=== PATIENT | female | born 1965 | race Caucasian/White ===

== ENCOUNTER 2020-04-23 20:39 | Inpatient (IN) | payer MEDICARE ==
[~2020-04-23] VITALS: Ht 162.6 cm; Wt 54.5 kg
[2020-04-23 23:06] VITALS: BP 103/75
[2020-04-23 23:07] VITALS: BP 103/75
[2020-04-23 23:15] VITALS: BP 113/77
[2020-04-23 23:30] VITALS: BP 97/67
[2020-04-23 23:45] VITALS: BP 97/70
[2020-04-24] VITALS (28 sets, daily range): BP systolic 91–145; BP diastolic 59–85
[2020-04-24] MEDS ORDERED: TYLENOL # 31 EA PO (00:15)
[2020-04-24] MEDS ORDERED: PROPOFOL IV EMULSION 50 ML IV ONE ×3 (00:37→06:47)
[2020-04-24] MEDS: PROPOFOL IV EMULSION 10MG/ML 100 ML IV PRN ×6 (00:41→19:21)
[2020-04-24] MEDS: FENTANYL CITRATE INJ 2,000 MCG in SODIUM CHLORIDE 0.9% 250ML 210 ML IV PRN ×3 (00:41→20:39)
[2020-04-24] MEDS ORDERED: FENTANYL 2000MCG/NS 250 250 ML ONE ×3 (00:42→20:46)
[2020-04-24] MEDS: PANTOPRAZOLE INJ 40 MG in SODIUM CHLORIDE 0.9% 50ML 50 ML IV SCH ×4 (01:33→11:33)
[2020-04-24 04:47] LABS: BASOPHILS # (AUTO) 0.1 (0.0-0.1); BASOPHILS % 0.4 % (0.0-1.0); HEMATOCRIT 30.2 % (34.2-44.1); HEMOGLOBIN 9.4 g/dL (12.0-16.0); LYMPHOCYTES # (AUTO) 2.3 (1.0-3.2); LYMPHOCYTES % 7.9 % (18.0-39.1); MEAN CORPUSCULAR HEMOGLOBIN 29.1 pg (28-32); MEAN CORPUSCULAR HGB CONC 31.1 g/dL (31-35); MEAN CORPUSCULAR VOLUME 93.5 fL (81-99); MONOCYTES # (AUTO) 1.8 (0.2-0.8); MONOCYTES % 6.3 % (4.4-11.3); NEUTROPHILS # (AUTO) 23.9 (2.1-6.9); NEUTROPHILS % 81.7 % (38.7-80.0); PLATELET COUNT 479 x10e3/uL (140-360); RED BLOOD COUNT 3.23 x10e6/uL (3.6-5.1); RED CELL DISTRIBUTION WIDTH 12.8 % (11.7-14.4)
[2020-04-24 05:15] LABS: ALANINE AMINOTRANSFERASE 54 IU/L (0-55); ALBUMIN 2.6 g/dL (3.5-5.0); ALBUMIN/GLOBULIN RATIO 0.7 (0.8-2.0); ALKALINE PHOSPHATASE 139 IU/L (40-150); ANION GAP 13.9 mmol/L (8-16); BLOOD UREA NITROGEN 23 mg/dL (7-26); BUN/CREATININE RATIO 32 (6-25); CALCIUM 8.9 mg/dL (8.4-10.2); CARBON DIOXIDE 26 mmol/L (22-29); CHLORIDE 104 mmol/L (98-107); CREATININE, SERUM 0.72 mg/dL (0.57-1.11); EST GLOMERULAR FILTRATION RATE > 60 ML/MIN (60-); GLUCOSE 116 mg/dL (74-118); POTASSIUM 4.9 mmol/L (3.5-5.1); SODIUM 139 mmol/L (136-145)
[2020-04-24 08:16] LABS: ABG HCO3 30 mmol/L (22-26); ABG PCO2 40 mmHg (35-45); ABG PH 7.48 (7.35-7.45); ABG PO2 151 mmHg (80-105); ABG TCO2 31
[2020-04-24] MEDS ORDERED: CEFEPIME 1GM/NS 0.9% 50 ML 50 ML IV SCH (08:45)
[2020-04-24 09:01] LABS: INR 1.14; PROTHROMBIN TIME 15.4 seconds (11.9-14.5)
[2020-04-24 09:02] LABS: PARTIAL THROMBOPLASTIN TIME 33.1 seconds (23.8-35.5)
[2020-04-24 09:18] LABS: % IRON SATURATION 15 % (15-50); IRON 39 ug/dL (50-170); TOTAL IRON BINDING CAPACITY 262 ug/dL (261-478); TRANSFERRIN 187 mg/dL (180-382)
[2020-04-24] MEDS: HEPARIN SOD (PORCINE) 5,000 UNIT/ML VIAL SC SCH ×2 (09:30→21:57)
[2020-04-24] MEDS ORDERED: PROPOFOL IV EMULSION 150 ML IV ONE (09:35)
[2020-04-24 09:39] LABS: BAND NEUTROPHILS % (MANUAL) 2 %; LYMPHOCYTES % (MANUAL) 11 % (19-48); MONOCYTES % (MANUAL) 4 % (3.4-9.0); NEUTROPHILS % (MANUAL) 81 % (40-74); PLATELET ESTIMATE SLIGHTLY INCREASED; PLATELET MORPHOLOGY COMMENT NORMAL; RBC MORPHOLOGY COMMENT NORMAL
[2020-04-24] MEDS: AZTREONAM 1 GM/NS 50 ML 50 ML IV SCH ×2 (09:43→21:57)
[2020-04-24] MEDS: ALBUTEROL/IPRATROPIUM 3 ML NEB NEB SCH ×3 (11:00→20:15)
[2020-04-24] MEDS: CLINDAMYCIN PHOS 900MG/ 50ML 50 ML IV SCH ×3 (11:38→23:12)
[2020-04-24] MEDS: PANTOPRAZOLE 40 MG 10ML VIAL IV SCH (17:00)
[2020-04-25] VITALS (25 sets, daily range): BP systolic 99–115; BP diastolic 52–65
[2020-04-25] MEDS: ALBUTEROL/IPRATROPIUM 3 ML NEB NEB SCH ×7 (00:15→22:30)
[2020-04-25] MEDS ORDERED: PROPOFOL IV EMULSION 50 ML IV ONE (03:17)
[2020-04-25] MEDS ORDERED: FENTANYL 2000MCG/NS 250 250 ML ONE (03:18)
[2020-04-25] MEDS: PROPOFOL IV EMULSION 10MG/ML 100 ML IV PRN (03:23)
[2020-04-25] MEDS: FENTANYL CITRATE INJ 2,000 MCG in SODIUM CHLORIDE 0.9% 250ML 210 ML IV PRN (03:24)
[2020-04-25] MEDS: CLINDAMYCIN PHOS 900MG/ 50ML 50 ML IV SCH ×3 (05:43→16:04)
[2020-04-25 06:11] LABS: BASOPHILS # (AUTO) 0.1 (0.0-0.1); BASOPHILS % 0.4 % (0.0-1.0); EOSINOPHILS # (AUTO) 0.1 (0.0-0.4); EOSINOPHILS % 0.3 % (0.0-6.0); HEMATOCRIT 27.3 % (34.2-44.1); HEMOGLOBIN 8.3 g/dL (12.0-16.0); LYMPHOCYTES # (AUTO) 2.3 (1.0-3.2); LYMPHOCYTES % 12.6 % (18.0-39.1); MEAN CORPUSCULAR HGB CONC 30.4 g/dL (31-35); MEAN CORPUSCULAR VOLUME 98.6 fL (81-99); MONOCYTES # (AUTO) 1.6 (0.2-0.8); MONOCYTES % 8.8 % (4.4-11.3); NEUTROPHILS # (AUTO) 13.4 (2.1-6.9); NEUTROPHILS % 74.1 % (38.7-80.0); PLATELET COUNT 319 x10e3/uL (140-360); RED BLOOD COUNT 2.77 x10e6/uL (3.6-5.1); RED CELL DISTRIBUTION WIDTH 13.2 % (11.7-14.4)
[2020-04-25 06:33] LABS: ALANINE AMINOTRANSFERASE 43 IU/L (0-55); ALBUMIN 2.3 g/dL (3.5-5.0); ALBUMIN/GLOBULIN RATIO 0.6 (0.8-2.0); ALKALINE PHOSPHATASE 120 IU/L (40-150); ANION GAP 12.7 mmol/L (8-16); BLOOD UREA NITROGEN 13 mg/dL (7-26); BUN/CREATININE RATIO 22 (6-25); CARBON DIOXIDE 28 mmol/L (22-29); CHLORIDE 105 mmol/L (98-107); CREATININE, SERUM 0.59 mg/dL (0.57-1.11); EST GLOMERULAR FILTRATION RATE > 60 ML/MIN (60-); GLUCOSE 120 mg/dL (74-118); SODIUM 142 mmol/L (136-145)
[2020-04-25 06:48] LABS: POTASSIUM 3.7 mmol/L (3.5-5.1)
[2020-04-25] MEDS ORDERED: PROPOFOL IV EMULSION 50 ML IV PRN (09:30)
[2020-04-25] MEDS: AZTREONAM 1 GM/NS 50 ML 50 ML IV SCH ×2 (09:33→21:35)
[2020-04-25] MEDS: PANTOPRAZOLE 40 MG 10ML VIAL IV SCH ×2 (09:33→16:04)
[2020-04-25] MEDS: HEPARIN SOD (PORCINE) 5,000 UNIT/ML VIAL SC SCH ×2 (09:33→21:00)
[2020-04-25] MEDS: DEXMEDETOMIDINE 200MCG/NS 50ML 50 ML IV SCH (11:18)
[2020-04-25] MEDS: FENTANYL 2000MCG/NS 250 250 ML IV PRN (11:48)
[2020-04-26] VITALS (28 sets, daily range): BP systolic 94–165; BP diastolic 50–99
[2020-04-26] MEDS: PROPOFOL IV EMULSION 10MG/ML 100 ML IV PRN ×4 (01:15→22:00)
[2020-04-26] MEDS: ALBUTEROL/IPRATROPIUM 3 ML NEB NEB SCH ×6 (03:10→22:30)
[2020-04-26 05:03] LABS: BASOPHILS # (AUTO) 0.1 (0.0-0.1); BASOPHILS % 0.4 % (0.0-1.0); EOSINOPHILS # (AUTO) 0.1 (0.0-0.4); EOSINOPHILS % 0.3 % (0.0-6.0); HEMATOCRIT 26.7 % (34.2-44.1); HEMOGLOBIN 8.1 g/dL (12.0-16.0); LYMPHOCYTES % 11.8 % (18.0-39.1); MEAN CORPUSCULAR HEMOGLOBIN 29.5 pg (28-32); MEAN CORPUSCULAR HGB CONC 30.3 g/dL (31-35); MEAN CORPUSCULAR VOLUME 97.1 fL (81-99); MONOCYTES # (AUTO) 1.2 (0.2-0.8); MONOCYTES % 6.8 % (4.4-11.3); NEUTROPHILS # (AUTO) 13.3 (2.1-6.9); NEUTROPHILS % 77.6 % (38.7-80.0); PLATELET COUNT 247 x10e3/uL (140-360); RED BLOOD COUNT 2.75 x10e6/uL (3.6-5.1); RED CELL DISTRIBUTION WIDTH 13.1 % (11.7-14.4)
[2020-04-26 05:24] LABS: ANION GAP 13.2 mmol/L (8-16); BLOOD UREA NITROGEN 12 mg/dL (7-26); BUN/CREATININE RATIO 23 (6-25); CALCIUM 8.3 mg/dL (8.4-10.2); CARBON DIOXIDE 28 mmol/L (22-29); CHLORIDE 103 mmol/L (98-107); CREATININE, SERUM 0.53 mg/dL (0.57-1.11); EST GLOMERULAR FILTRATION RATE > 60 ML/MIN (60-); GLUCOSE 106 mg/dL (74-118); POTASSIUM 4.2 mmol/L (3.5-5.1); SODIUM 140 mmol/L (136-145)
[2020-04-26] MEDS: CLINDAMYCIN PHOS 900MG/ 50ML 50 ML IV SCH ×4 (06:00→17:52)
[2020-04-26 06:24] LABS: INR 0.97; PARTIAL THROMBOPLASTIN TIME 32.9 seconds (23.8-35.5); PROTHROMBIN TIME 13.5 seconds (11.9-14.5)
[2020-04-26] MEDS ORDERED: AMIODARONE HCL 150 MG/100 ML BAG IV ONE (06:45)
[2020-04-26] MEDS ORDERED: AMIODARONE HCL 900 MG in DEXTROSE 5% 500ML 500 ML IV ONE (06:45)
[2020-04-26] MEDS ORDERED: HEPARIN 25,000 UNIT 600 UNIT in DEXTROSE 5% 250ML 250 ML IV SCH (07:00)
[2020-04-26] MEDS ORDERED: HEPARIN 25,000 UNIT DRIP IV ONE (07:54)
[2020-04-26] MEDS: DEXMEDETOMIDINE 200MCG/NS 50ML 50 ML IV SCH ×2 (08:53→11:00)
[2020-04-26] MEDS: HEPARIN SOD (PORCINE) 5,000 UNIT/ML VIAL SC SCH ×2 (08:53→20:47)
[2020-04-26] MEDS: PANTOPRAZOLE 40 MG 10ML VIAL IV SCH ×2 (09:00→16:05)
[2020-04-26] MEDS: AZTREONAM 1 GM/NS 50 ML 50 ML IV SCH ×2 (09:14→21:24)
[2020-04-26] MEDS: FENTANYL 2000MCG/NS 250 250 ML IV PRN (11:28)
[2020-04-26] MEDS ORDERED: HYDROCODONE/APAP 5MG-325MG TAB PO PRN (14:45)
[2020-04-26] MEDS ORDERED: CYCLOBENZAPRIN7.5 MG PO (16:22)
[2020-04-26] MEDS ORDERED: MULTI-VITAMIN1 EACH PO (16:22)
[2020-04-26] MEDS ORDERED: ALBUTEROL1.25 MG/3 NEB (16:22)
[2020-04-26] MEDS ORDERED: GABAPENTIN100 MG PO (16:22)
[2020-04-26] MEDS ORDERED: FLUOXETINE HCL20 M1 PO (16:22)
[2020-04-26] MEDS ORDERED: OMEPRAZOLE40 MG PO (16:22)
[2020-04-26] MEDS ORDERED: VICODIN HP 10-1 EAC1 PO (16:22)
[2020-04-26] MEDS ORDERED: OLANZAPINE5 MG PO (16:22)
[2020-04-26] MEDS ORDERED: SIMVASTATIN20 MG PO (16:22)
[2020-04-26] MEDS: QUETIAPINE FUMARATE 25 MG TAB PO SCH (17:50)
[2020-04-26] MEDS: CLONAZEPAM 0.5 MG TAB PO SCH (17:51)
[2020-04-27] VITALS (32 sets, daily range): BP systolic 96–172; BP diastolic 50–107
[2020-04-27] MEDS: CLINDAMYCIN PHOS 900MG/ 50ML 50 ML IV SCH ×4 (01:00→19:31)
[2020-04-27] MEDS: ALBUTEROL/IPRATROPIUM 3 ML NEB NEB SCH ×6 (02:20→23:00)
[2020-04-27 04:32] LABS: BASOPHILS # (AUTO) 0.1 (0.0-0.1); BASOPHILS % 0.3 % (0.0-1.0); EOSINOPHILS # (AUTO) 0.1 (0.0-0.4); EOSINOPHILS % 0.4 % (0.0-6.0); HEMATOCRIT 26.9 % (34.2-44.1); HEMOGLOBIN 8.3 g/dL (12.0-16.0); LYMPHOCYTES # (AUTO) 2.2 (1.0-3.2); LYMPHOCYTES % 11.6 % (18.0-39.1); MEAN CORPUSCULAR HEMOGLOBIN 29.1 pg (28-32); MEAN CORPUSCULAR HGB CONC 30.9 g/dL (31-35); MEAN CORPUSCULAR VOLUME 94.4 fL (81-99); MONOCYTES % 5.3 % (4.4-11.3); NEUTROPHILS % 77.5 % (38.7-80.0); PLATELET COUNT 311 x10e3/uL (140-360); RED BLOOD COUNT 2.85 x10e6/uL (3.6-5.1); RED CELL DISTRIBUTION WIDTH 13.1 % (11.7-14.4)
[2020-04-27 04:46] LABS: ALANINE AMINOTRANSFERASE 41 IU/L (0-55); ALBUMIN 2.2 g/dL (3.5-5.0); ALBUMIN/GLOBULIN RATIO 0.5 (0.8-2.0); ALKALINE PHOSPHATASE 176 IU/L (40-150); ANION GAP 14.9 mmol/L (8-16); BLOOD UREA NITROGEN 13 mg/dL (7-26); BUN/CREATININE RATIO 22 (6-25); CALCIUM 8.7 mg/dL (8.4-10.2); CARBON DIOXIDE 26 mmol/L (22-29); CHLORIDE 97 mmol/L (98-107); CREATININE, SERUM 0.58 mg/dL (0.57-1.11); EST GLOMERULAR FILTRATION RATE > 60 ML/MIN (60-); GLUCOSE 144 mg/dL (74-118); POTASSIUM 3.9 mmol/L (3.5-5.1); SODIUM 134 mmol/L (136-145)
[2020-04-27] MEDS: HEPARIN SOD (PORCINE) 5,000 UNIT/ML VIAL SC SCH (09:00)
[2020-04-27] MEDS: CLONAZEPAM 0.5 MG TAB PO SCH ×2 (09:00→17:11)
[2020-04-27] MEDS: PANTOPRAZOLE 40 MG 10ML VIAL IV SCH ×2 (09:32→16:43)
[2020-04-27] MEDS: QUETIAPINE FUMARATE 25 MG TAB PO SCH ×2 (09:33→17:11)
[2020-04-27] MEDS: AZTREONAM 1 GM/NS 50 ML 50 ML IV SCH ×2 (09:33→21:17)
[2020-04-27] MEDS ORDERED: FUROSEMIDE INJ 10 MG/ML 2 ML VIAL IV ONE (15:15)
[2020-04-27 15:20] LABS: ABG HCO3 35 mmol/L (22-26); ABG PCO2 50 mmHg (35-45); ABG PH 7.45 (7.35-7.45); ABG PO2 74 mmHg (80-105); ABG TCO2 36
[2020-04-27] MEDS: DEXMEDETOMIDINE 200MCG/NS 50ML 50 ML IV SCH ×2 (15:26→20:50)
[2020-04-27] MEDS: METHYLPREDNISOLONE SOD SUCC 40 MG/ML VIAL 1ML IV SCH ×2 (16:43→21:16)
[2020-04-27] MEDS: ENOXAPARIN SOD INJ 40 MG/0.4 ML SYR SC SCH (21:15)
[2020-04-28] VITALS (25 sets, daily range): BP systolic 113–176; BP diastolic 78–103
[2020-04-28] MEDS: CLINDAMYCIN PHOS 900MG/ 50ML 50 ML IV SCH ×4 (00:10→17:44)
[2020-04-28] MEDS: DEXMEDETOMIDINE 200MCG/NS 50ML 50 ML IV SCH ×9 (00:33→22:00)
[2020-04-28] MEDS: ALBUTEROL/IPRATROPIUM 3 ML NEB NEB SCH ×6 (03:15→22:30)
[2020-04-28] MEDS: METHYLPREDNISOLONE SOD SUCC 40 MG/ML VIAL 1ML IV SCH ×2 (08:57→20:56)
[2020-04-28] MEDS: PANTOPRAZOLE 40 MG 10ML VIAL IV SCH ×2 (08:57→17:19)
[2020-04-28] MEDS: QUETIAPINE FUMARATE 25 MG TAB PO SCH (08:58)
[2020-04-28] MEDS: CLONAZEPAM 0.5 MG TAB PO SCH (08:58)
[2020-04-28] MEDS: ENOXAPARIN SOD INJ 40 MG/0.4 ML SYR SC SCH ×2 (08:58→20:57)
[2020-04-28] MEDS: AZTREONAM 1 GM/NS 50 ML 50 ML IV SCH ×2 (10:32→20:57)
[2020-04-28] MEDS: HYDRALAZINE HCL 20 MG/ML VIAL IV PRN (11:21)
[2020-04-28] MEDS ORDERED: HALOPERIDOL LACTATE 5 MG/ML VIAL IV PRN (12:15)
[2020-04-28] MEDS ORDERED: LORAZEPAM 0.5 MG TAB PO PRN (15:15)
[2020-04-28] MEDS: OLANZAPINE 5 MG TAB PO SCH (17:00)
[2020-04-28] MEDS: LORAZEPAM INJ 2 MG/ML VIAL IV PRN (20:08)
[2020-04-29] VITALS (24 sets, daily range): BP systolic 107–165; BP diastolic 70–107
[2020-04-29] MEDS: CLINDAMYCIN PHOS 900MG/ 50ML 50 ML IV SCH ×4 (00:12→18:19)
[2020-04-29] MEDS: DEXMEDETOMIDINE 200MCG/NS 50ML 50 ML IV SCH ×12 (02:14→22:27)
[2020-04-29] MEDS: ALBUTEROL/IPRATROPIUM 3 ML NEB NEB SCH ×6 (02:45→23:25)
[2020-04-29] MEDS: LORAZEPAM INJ 2 MG/ML VIAL IV PRN ×3 (04:42→22:00)
[2020-04-29 05:56] LABS: BASOPHILS # (AUTO) 0.1 (0.0-0.1); BASOPHILS % 0.5 % (0.0-1.0); HEMATOCRIT 31.4 % (34.2-44.1); HEMOGLOBIN 9.6 g/dL (12.0-16.0); LYMPHOCYTES # (AUTO) 2.4 (1.0-3.2); LYMPHOCYTES % 8.3 % (18.0-39.1); MEAN CORPUSCULAR HEMOGLOBIN 28.9 pg (28-32); MEAN CORPUSCULAR HGB CONC 30.6 g/dL (31-35); MEAN CORPUSCULAR VOLUME 94.6 fL (81-99); MONOCYTES # (AUTO) 1.8 (0.2-0.8); MONOCYTES % 6.1 % (4.4-11.3); NEUTROPHILS # (AUTO) 23.5 (2.1-6.9); NEUTROPHILS % 81.1 % (38.7-80.0); PLATELET COUNT 659 x10e3/uL (140-360); RED BLOOD COUNT 3.32 x10e6/uL (3.6-5.1); RED CELL DISTRIBUTION WIDTH 14.4 % (11.7-14.4)
[2020-04-29 06:51] LABS: BLOOD UREA NITROGEN 27 mg/dL (7-26); BUN/CREATININE RATIO 39 (6-25); CALCIUM 9.6 mg/dL (8.4-10.2); CARBON DIOXIDE 24 mmol/L (22-29); CHLORIDE 107 mmol/L (98-107); EST GLOMERULAR FILTRATION RATE > 60 ML/MIN (60-); GLUCOSE 113 mg/dL (74-118); SODIUM 149 mmol/L (136-145)
[2020-04-29 08:16] LABS: ANISOCYTOSIS SLIGHT; LYMPHOCYTES % (MANUAL) 7 % (19-48); MONOCYTES % (MANUAL) 5 % (3.4-9.0); MYELOCYTES % (MANUAL) 1 % (0-0); NEUTROPHILS % (MANUAL) 87 % (40-74); NUCLEATED RED BLOOD CELLS 1; PLATELET ESTIMATE MODERATELY INCREASED; PLATELET MORPHOLOGY COMMENT NORMAL; RBC MORPHOLOGY COMMENT NORMAL
[2020-04-29] MEDS: PANTOPRAZOLE 40 MG 10ML VIAL IV SCH ×2 (08:30→16:57)
[2020-04-29] MEDS: METHYLPREDNISOLONE SOD SUCC 40 MG/ML VIAL 1ML IV SCH ×2 (08:30→21:15)
[2020-04-29] MEDS: ENOXAPARIN SOD INJ 40 MG/0.4 ML SYR SC SCH ×2 (08:30→21:15)
[2020-04-29] MEDS: OLANZAPINE 5 MG TAB PO SCH ×2 (08:30→16:57)
[2020-04-29] MEDS: AZTREONAM 1 GM/NS 50 ML 50 ML IV SCH ×2 (09:40→21:15)
[2020-04-29] MEDS: DEXTROSE 5% 1,000 ML IV SCH (11:16)
[2020-04-30] VITALS (24 sets, daily range): BP systolic 117–147; BP diastolic 74–93
[2020-04-30] MEDS: CLINDAMYCIN PHOS 900MG/ 50ML 50 ML IV SCH ×5 (01:00→23:46)
[2020-04-30] MEDS: DEXMEDETOMIDINE 200MCG/NS 50ML 50 ML IV SCH ×7 (02:00→14:08)
[2020-04-30] MEDS: ALBUTEROL/IPRATROPIUM 3 ML NEB NEB SCH ×5 (02:45→19:57)
[2020-04-30] MEDS: DEXTROSE 5% 1,000 ML IV SCH (08:36)
[2020-04-30] MEDS: METHYLPREDNISOLONE SOD SUCC 40 MG/ML VIAL 1ML IV SCH ×2 (08:49→21:00)
[2020-04-30] MEDS: PANTOPRAZOLE 40 MG 10ML VIAL IV SCH ×2 (08:49→17:14)
[2020-04-30] MEDS: LORAZEPAM INJ 2 MG/ML VIAL IV PRN ×2 (08:49→19:30)
[2020-04-30] MEDS: ENOXAPARIN SOD INJ 40 MG/0.4 ML SYR SC SCH ×2 (08:49→21:00)
[2020-04-30] MEDS: AZTREONAM 1 GM/NS 50 ML 50 ML IV SCH ×2 (08:49→22:00)
[2020-04-30] MEDS: OLANZAPINE 5 MG TAB PO SCH (08:50)
[2020-04-30 15:32] LABS: BASOPHILS % 0.2 % (0.0-1.0); HEMATOCRIT 27.4 % (34.2-44.1); HEMOGLOBIN 8.4 g/dL (12.0-16.0); LYMPHOCYTES # (AUTO) 1.2 (1.0-3.2); LYMPHOCYTES % 14.2 % (18.0-39.1); MEAN CORPUSCULAR HEMOGLOBIN 28.7 pg (28-32); MEAN CORPUSCULAR HGB CONC 30.7 g/dL (31-35); MEAN CORPUSCULAR VOLUME 93.5 fL (81-99); MONOCYTES # (AUTO) 0.4 (0.2-0.8); MONOCYTES % 5.1 % (4.4-11.3); NEUTROPHILS # (AUTO) 6.6 (2.1-6.9); NEUTROPHILS % 79.2 % (38.7-80.0); PLATELET COUNT 377 x10e3/uL (140-360); RED BLOOD COUNT 2.93 x10e6/uL (3.6-5.1)
[2020-04-30 15:50] LABS: ANION GAP 13.8 mmol/L (8-16); BLOOD UREA NITROGEN 19 mg/dL (7-26); BUN/CREATININE RATIO 31 (6-25); CALCIUM 8.3 mg/dL (8.4-10.2); CARBON DIOXIDE 27 mmol/L (22-29); CHLORIDE 104 mmol/L (98-107); CREATININE, SERUM 0.61 mg/dL (0.57-1.11); EST GLOMERULAR FILTRATION RATE > 60 ML/MIN (60-); GLUCOSE 144 mg/dL (74-118); POTASSIUM 3.8 mmol/L (3.5-5.1); SODIUM 141 mmol/L (136-145)
[2020-04-30] MEDS: OLANZAPINE 5 MG TAB PO PRN (21:00)
[2020-05-01] VITALS (25 sets, daily range): BP systolic 97–164; BP diastolic 67–100
[2020-05-01] MEDS: ALBUTEROL/IPRATROPIUM 3 ML NEB NEB SCH ×7 (00:05→23:13)
[2020-05-01] MEDS: DEXMEDETOMIDINE 200MCG/NS 50ML 50 ML IV SCH (00:26)
[2020-05-01] MEDS: DEXTROSE 5% 1,000 ML IV SCH ×2 (02:00→23:00)
[2020-05-01] MEDS: CLINDAMYCIN PHOS 900MG/ 50ML 50 ML IV SCH ×3 (06:00→17:07)
[2020-05-01] MEDS: ENOXAPARIN SOD INJ 40 MG/0.4 ML SYR SC SCH ×2 (08:19→20:59)
[2020-05-01] MEDS: PANTOPRAZOLE 40 MG 10ML VIAL IV SCH ×2 (08:19→16:50)
[2020-05-01] MEDS: METHYLPREDNISOLONE SOD SUCC 40 MG/ML VIAL 1ML IV SCH ×2 (08:19→20:59)
[2020-05-01] MEDS: AZTREONAM 1 GM/NS 50 ML 50 ML IV SCH ×2 (09:33→22:00)
[2020-05-01] MEDS: LORAZEPAM INJ 2 MG/ML VIAL IV PRN (21:00)
[2020-05-01] MEDS: OLANZAPINE 5 MG TAB PO PRN (21:00)
[2020-05-02] VITALS (17 sets, daily range): BP systolic 138–171; BP diastolic 76–93
[2020-05-02] MEDS: ALBUTEROL/IPRATROPIUM 3 ML NEB NEB SCH ×5 (02:37→23:00)
[2020-05-02 04:47] LABS: BASOPHILS % 0.3 % (0.0-1.0); HEMATOCRIT 34.5 % (34.2-44.1); HEMOGLOBIN 10.8 g/dL (12.0-16.0); LYMPHOCYTES # (AUTO) 2.8 (1.0-3.2); LYMPHOCYTES % 17.6 % (18.0-39.1); MEAN CORPUSCULAR HEMOGLOBIN 28.8 pg (28-32); MEAN CORPUSCULAR HGB CONC 31.3 g/dL (31-35); MONOCYTES # (AUTO) 1.4 (0.2-0.8); MONOCYTES % 8.8 % (4.4-11.3); NEUTROPHILS # (AUTO) 11.4 (2.1-6.9); NEUTROPHILS % 71.8 % (38.7-80.0); PLATELET COUNT 681 x10e3/uL (140-360); RED BLOOD COUNT 3.75 x10e6/uL (3.6-5.1); RED CELL DISTRIBUTION WIDTH 14.7 % (11.7-14.4)
[2020-05-02 05:07] LABS: ANION GAP 15.8 mmol/L (8-16); BLOOD UREA NITROGEN 7 mg/dL (7-26); BUN/CREATININE RATIO 12 (6-25); CALCIUM 8.3 mg/dL (8.4-10.2); CARBON DIOXIDE 27 mmol/L (22-29); CHLORIDE 100 mmol/L (98-107); CREATININE, SERUM 0.57 mg/dL (0.57-1.11); EST GLOMERULAR FILTRATION RATE > 60 ML/MIN (60-); GLUCOSE 121 mg/dL (74-118); SODIUM 140 mmol/L (136-145)
[2020-05-02 05:31] LABS: POTASSIUM 2.8 mmol/L (3.5-5.1)
[2020-05-02] MEDS: CLINDAMYCIN PHOS 900MG/ 50ML 50 ML IV SCH ×4 (06:00→16:08)
[2020-05-02] MEDS ORDERED: POTASSIUM CHLORIDE 20MEQ/100ML 100 ML IV ONE (06:30)
[2020-05-02] MEDS ORDERED: POTASSIUM CHLORIDE 20 MEQ TAB CR PO NR (06:30)
[2020-05-02] MEDS: ENOXAPARIN SOD INJ 40 MG/0.4 ML SYR SC SCH ×2 (07:30→21:00)
[2020-05-02] MEDS: AZTREONAM 1 GM/NS 50 ML 50 ML IV SCH ×2 (07:30→21:48)
[2020-05-02] MEDS: PANTOPRAZOLE 40 MG 10ML VIAL IV SCH (07:30)
[2020-05-02] MEDS: METHYLPREDNISOLONE SOD SUCC 40 MG/ML VIAL 1ML IV SCH (07:30)
[2020-05-02] MEDS: ONDANSETRON HCL INJ 2MG/ML 2ML 2 MG/ML VIAL IV PRN ×3 (09:36→16:08)
[2020-05-02] MEDS: HYDRALAZINE HCL 20 MG/ML VIAL IV PRN (09:46)
[2020-05-02] MEDS: LOSARTAN POTASSIUM 25 MG TAB PO SCH (12:37)
[2020-05-02] MEDS: FAMOTIDINE 20 MG TAB PO SCH (16:07)
[2020-05-02] MEDS: GABAPENTIN 100 MG CAP PO SCH (16:08)
[2020-05-02 20:46] LABS: BLOOD UREA NITROGEN 6 mg/dL (7-26); BUN/CREATININE RATIO 11 (6-25); CALCIUM 7.9 mg/dL (8.4-10.2); CARBON DIOXIDE 26 mmol/L (22-29); CHLORIDE 102 mmol/L (98-107); CREATININE, SERUM 0.54 mg/dL (0.57-1.11); EST GLOMERULAR FILTRATION RATE > 60 ML/MIN (60-); GLUCOSE 103 mg/dL (74-118); SODIUM 140 mmol/L (136-145)
[2020-05-02] MEDS: OLANZAPINE 5 MG TAB PO SCH (21:00)
[2020-05-02 21:49] LABS: MAGNESIUM 1.9 MG/DL (1.3-2.1); PHOSPHORUS 2.7 MG/DL (2.3-4.7)
[2020-05-02] MEDS ORDERED: POTASSIUM CHLORIDE 20MEQ/100ML 100 ML ONE ×2 (23:20→23:23)
[2020-05-02] MEDS ORDERED: MAGNESIUM SULF 1GRAM/DEXTROSE 100 ML IV ONE ×2 (23:23→23:45)
[2020-05-02] MEDS ORDERED: POTASSIUM CHLORIDE 20 MEQ TAB CR PO STA (23:36)
[2020-05-03] VITALS (11 sets, daily range): BP systolic 125–167; BP diastolic 75–87
[2020-05-03] MEDS: POTASSIUM CHLORIDE 20MEQ/100ML 100 ML IV SCH ×2 (01:00→02:30)
[2020-05-03] MEDS: ALBUTEROL/IPRATROPIUM 3 ML NEB NEB SCH ×2 (03:00→07:00)
[2020-05-03] MEDS ORDERED: METHYLPREDNISOLONE SOD SUCC 40 MG/ML VIAL 1ML IV SCH (06:00)
[2020-05-03] MEDS: CLINDAMYCIN PHOS 900MG/ 50ML 50 ML IV SCH ×3 (06:00→11:44)
[2020-05-03] MEDS: FAMOTIDINE 20 MG TAB PO SCH ×2 (07:28→16:08)
[2020-05-03 07:31] LABS: ANION GAP 11.9 mmol/L (8-16); BLOOD UREA NITROGEN 6 mg/dL (7-26); BUN/CREATININE RATIO 11 (6-25); CALCIUM 7.9 mg/dL (8.4-10.2); CARBON DIOXIDE 27 mmol/L (22-29); CHLORIDE 105 mmol/L (98-107); CREATININE, SERUM 0.53 mg/dL (0.57-1.11); EST GLOMERULAR FILTRATION RATE > 60 ML/MIN (60-); GLUCOSE 95 mg/dL (74-118); POTASSIUM 3.9 mmol/L (3.5-5.1); SODIUM 140 mmol/L (136-145)
[2020-05-03] MEDS: GABAPENTIN 100 MG CAP PO SCH ×2 (08:47→16:08)
[2020-05-03] MEDS: FLUOXETINE HCL 10 MG CAP PO SCH (08:47)
[2020-05-03] MEDS: ENOXAPARIN SOD INJ 40 MG/0.4 ML SYR SC SCH ×2 (08:48→21:18)
[2020-05-03] MEDS: LOSARTAN POTASSIUM 25 MG TAB PO SCH (08:56)
[2020-05-03] MEDS ORDERED: METOPROLOL SUCCINATE 25 MG TAB XL PO SCH (09:00)
[2020-05-03] MEDS ORDERED: OLANZAPINE 5 MG TAB PO SCH (09:00)
[2020-05-03] MEDS: DILTIAZEM HCL 30 MG TAB PO SCH ×3 (09:26→21:19)
[2020-05-03] MEDS: AZTREONAM 1 GM/NS 50 ML 50 ML IV SCH (10:22)
[2020-05-03] MEDS ORDERED: DILTIAZEM HCL 30 MG TAB PO SCH (12:00)
[2020-05-03] MEDS ORDERED: ALBUTEROL/IPRATROPIUM 3 ML NEB NEB PRN (13:15)
[2020-05-03] MEDS: OLANZAPINE 5 MG TAB PO SCH (21:18)
[2020-05-04] VITALS (8 sets, daily range): BP systolic 120–170; BP diastolic 57–96
[2020-05-04] MEDS: DILTIAZEM HCL 30 MG TAB PO SCH ×5 (04:51→21:25)
[2020-05-04] MEDS: FAMOTIDINE 20 MG TAB PO SCH ×3 (08:27→18:41)
[2020-05-04] MEDS: LOSARTAN POTASSIUM 25 MG TAB PO SCH ×2 (08:28→10:00)
[2020-05-04] MEDS: PREDNISONE 20 MG TAB PO SCH ×2 (08:28→10:00)
[2020-05-04] MEDS: GABAPENTIN 100 MG CAP PO SCH ×3 (08:28→18:41)
[2020-05-04] MEDS: ENOXAPARIN SOD INJ 40 MG/0.4 ML SYR SC SCH ×2 (08:29→10:00)
[2020-05-04] MEDS: FLUOXETINE HCL 10 MG CAP PO SCH (09:00)
[2020-05-04] MEDS: ONDANSETRON HCL INJ 2MG/ML 2ML 2 MG/ML VIAL IV PRN (14:05)
[2020-05-04] MEDS: HYDROCODONE/APAP 5MG-325MG TAB PO PRN (15:40)
[2020-05-04] MEDS: OLANZAPINE 5 MG TAB PO SCH (21:25)
[2020-05-05] VITALS (9 sets, daily range): BP systolic 119–156; BP diastolic 69–87
[2020-05-05] MEDS: DILTIAZEM HCL 30 MG TAB PO SCH ×4 (03:05→21:04)
[2020-05-05] MEDS: HYDROCODONE/APAP 5MG-325MG TAB PO PRN (03:05)
[2020-05-05] MEDS: FAMOTIDINE 20 MG TAB PO SCH ×2 (06:00→17:07)
[2020-05-05] MEDS: FLUOXETINE HCL 10 MG CAP PO SCH (09:04)
[2020-05-05] MEDS: GABAPENTIN 100 MG CAP PO SCH ×2 (09:04→17:07)
[2020-05-05] MEDS: PREDNISONE 20 MG TAB PO SCH (09:04)
[2020-05-05] MEDS: LOSARTAN POTASSIUM 25 MG TAB PO SCH (09:04)
[2020-05-05] MEDS ORDERED: OMEPRAZOLE 20 MG CAP PO ONE (20:15)
[2020-05-05] MEDS: OLANZAPINE 5 MG TAB PO SCH (20:28)
[2020-05-05] MEDS: FLUOXETINE HCL 20 MG CAP PO SCH (20:28)
[2020-05-06] VITALS (7 sets, daily range): BP systolic 121–156; BP diastolic 65–87
[2020-05-06] MEDS: DILTIAZEM HCL 30 MG TAB PO SCH ×4 (05:00→21:08)
[2020-05-06 07:03] LABS: BLOOD UREA NITROGEN 8 mg/dL (7-26); BUN/CREATININE RATIO 14 (6-25); CALCIUM 8.8 mg/dL (8.4-10.2); CARBON DIOXIDE 27 mmol/L (22-29); CHLORIDE 100 mmol/L (98-107); CREATININE, SERUM 0.59 mg/dL (0.57-1.11); EST GLOMERULAR FILTRATION RATE > 60 ML/MIN (60-); GLUCOSE 84 mg/dL (74-118); SODIUM 140 mmol/L (136-145)
[2020-05-06 07:05] LABS: BASOPHILS # (AUTO) 0.1 (0.0-0.1); BASOPHILS % 0.4 % (0.0-1.0); EOSINOPHILS # (AUTO) 0.1 (0.0-0.4); EOSINOPHILS % 0.6 % (0.0-6.0); HEMATOCRIT 38.3 % (34.2-44.1); HEMOGLOBIN 11.9 g/dL (12.0-16.0); LYMPHOCYTES # (AUTO) 3.7 (1.0-3.2); LYMPHOCYTES % 27.8 % (18.0-39.1); MEAN CORPUSCULAR HEMOGLOBIN 29.2 pg (28-32); MEAN CORPUSCULAR HGB CONC 31.1 g/dL (31-35); MEAN CORPUSCULAR VOLUME 93.9 fL (81-99); MONOCYTES # (AUTO) 1.2 (0.2-0.8); MONOCYTES % 9.3 % (4.4-11.3); NEUTROPHILS # (AUTO) 8.2 (2.1-6.9); NEUTROPHILS % 61.1 % (38.7-80.0); PLATELET COUNT 567 x10e3/uL (140-360); RED BLOOD COUNT 4.08 x10e6/uL (3.6-5.1); RED CELL DISTRIBUTION WIDTH 14.6 % (11.7-14.4)
[2020-05-06] MEDS: ONDANSETRON HCL INJ 2MG/ML 2ML 2 MG/ML VIAL IV PRN (08:02)
[2020-05-06] MEDS: HYDROCODONE/APAP 5MG-325MG TAB PO PRN (08:02)
[2020-05-06] MEDS: FAMOTIDINE 20 MG TAB PO SCH ×2 (08:23→16:31)
[2020-05-06] MEDS: GABAPENTIN 100 MG CAP PO SCH ×2 (08:24→16:31)
[2020-05-06] MEDS: OMEPRAZOLE 20 MG CAP PO SCH (08:24)
[2020-05-06] MEDS: PREDNISONE 20 MG TAB PO SCH (08:24)
[2020-05-06] MEDS: LOSARTAN POTASSIUM 25 MG TAB PO SCH (08:25)
[2020-05-06] MEDS: ENOXAPARIN SOD INJ 40 MG/0.4 ML SYR SC SCH (16:31)
[2020-05-06] MEDS: FLUOXETINE HCL 20 MG CAP PO SCH (21:07)
[2020-05-06] MEDS: OLANZAPINE 5 MG TAB PO SCH (21:07)
[2020-05-07] VITALS (8 sets, daily range): BP systolic 118–155; BP diastolic 68–83
[2020-05-07] MEDS: DILTIAZEM HCL 30 MG TAB PO SCH ×4 (04:55→21:44)
[2020-05-07] MEDS: OMEPRAZOLE 20 MG CAP PO SCH (09:13)
[2020-05-07] MEDS: LOSARTAN POTASSIUM 25 MG TAB PO SCH (09:13)
[2020-05-07] MEDS: GABAPENTIN 100 MG CAP PO SCH ×2 (09:13→17:38)
[2020-05-07] MEDS: FAMOTIDINE 20 MG TAB PO SCH ×2 (09:13→17:38)
[2020-05-07] MEDS: PREDNISONE 20 MG TAB PO SCH (09:13)
[2020-05-07] MEDS: HYDROCODONE/APAP 5MG-325MG TAB PO PRN ×2 (09:40→17:42)
[2020-05-07] MEDS: POTASSIUM BICARBONATE/CIT AC 20 MEQ TABLET.EFF PO ONE ×2 (14:18→14:23)
[2020-05-07] MEDS ORDERED: POTASSIUM CHLORIDE 20 MEQ TAB CR PO ONE (15:00)
[2020-05-07] MEDS: ENOXAPARIN SOD INJ 40 MG/0.4 ML SYR SC SCH (17:38)
[2020-05-07] MEDS: OLANZAPINE 5 MG TAB PO SCH (21:42)
[2020-05-07] MEDS: FLUOXETINE HCL 20 MG CAP PO SCH (21:42)
[2020-05-08 00:39] VITALS: BP 149/82
[2020-05-08 04:00] VITALS: BP 148/80
[2020-05-08] MEDS: DILTIAZEM HCL 30 MG TAB PO SCH (04:52)
[2020-05-08 08:05] VITALS: BP 136/79
[2020-05-08 08:10] VITALS: BP 136/79
[2020-05-08] MEDS ORDERED: DILTIAZEM HCL ER 120 MG CAP PO SCH (09:15)
[2020-05-08] MEDS: FAMOTIDINE 20 MG TAB PO SCH (11:22)
[2020-05-08] MEDS: OMEPRAZOLE 20 MG CAP PO SCH (11:23)
[2020-05-08] MEDS: LOSARTAN POTASSIUM 25 MG TAB PO SCH (11:23)
[2020-05-08] MEDS: GABAPENTIN 100 MG CAP PO SCH (11:23)
[2020-05-08] MEDS: HYDROCODONE/APAP 5MG-325MG TAB PO PRN ×2 (11:26→16:44)
[2020-05-08 11:41] VITALS: BP 114/65
[2020-05-08 15:57] VITALS: BP 131/74
== END 2020-05-08 17:02 | DRG 208 ==
LOC: ICU 22:17 → MED/SURG3 05-03 14:00
PROVIDERS: ADMIT Internal Medicine; ATTEND Internal Medicine
PROC: 5A1945Z Respiratory Ventilation, 24-96 Consecutive Hours (ICD-10-PCS; principal; 2020-04-23)
PROC: 02HV33Z Insertion of Infusion Device into Superior Vena Cava, Percutaneous Approach (ICD-10-PCS; 2020-04-23)
PROC: B518ZZA Fluoroscopy of Superior Vena Cava, Guidance (ICD-10-PCS; 2020-04-23)
DX: J96.21 Acute and chronic respiratory failure with hypoxia (principal); J69.0 Pneumonitis due to inhalation of food and vomit; J44.0 Chronic obstructive pulmonary disease with (acute) lower respiratory infection; J44.1 Chronic obstructive pulmonary disease with (acute) exacerbation; E87.0 Hyperosmolality and hypernatremia; K44.9 Diaphragmatic hernia without obstruction or gangrene; F12.90 Cannabis use, unspecified, uncomplicated; Z88.0 Allergy status to penicillin; F43.22 Adjustment disorder with anxiety; Z99.81 Dependence on supplemental oxygen; J96.22 Acute and chronic respiratory failure with hypercapnia; I49.8 Other specified cardiac arrhythmias; F29 Unspecified psychosis not due to a substance or known physiological condition; F31.9 Bipolar disorder, unspecified; R19.7 Diarrhea, unspecified; I10 Essential (primary) hypertension; R41.0 Disorientation, unspecified; E87.6 Hypokalemia; R53.81 Other malaise
CPT/HCPCS: 36415; 36569; 36600; 71045; 71250; 80048; 80053; 82805; 82948; 83540; 83605; 83735; 83880; 84100; 84466; 85025; 85610; 85730; 87040; 87070; 87205; 93005; 93306; 94002; 94003; 94640; 94660; 96361; 97139; 99251; J0360; J1630; J1644; J1650; J1940; J2060; J2405; J2920; J3475; J3480; J7060; J7070; J7512; U0002